=== PATIENT | female | born 1970 | race Caucasian/White ===

== ENCOUNTER 2017-10-25 17:28 | Emergency (ER) | payer OTHER ==
[2017-10-25 18:27] LABS: ADD MAN DIFF? NO
[2017-10-25 18:32] LABS: BASO % 1 % (0-3); EOS % 1 % (0-3); HEMATOCRIT 41.8 % (36.0-47.0); HEMOGLOBIN 14.2 g/dL (12.0-15.5); LYMPH # 1.2 x10^3/uL (1.0-4.8); LYMPH % 27 % (24-48); MEAN CORPUSCULAR HEMOGLOBIN 28 pg (25-35); MEAN CORPUSCULAR HGB CONC 34 g/dL (31-37); MEAN CORPUSCULAR VOLUME 82 fL (79-100); MONO # 0.6 x10^3/uL (0.0-1.1); MONO % 14 % (0-9); NEUT # 2.5 x10^3uL (1.8-7.7); NEUT % 57 % (31-73); PLATELET COUNT 274 x10^3/uL (140-400); RED CELL DISTRIBUTION WIDTH 14.4 % (11.5-14.5); WHITE BLOOD COUNT 4.4 x10^3/uL (4.0-11.0)
[2017-10-25] MEDS: DICYCLOMINE HCL 10 MG CAPSULE PO (18:37)
[2017-10-25] MEDS: IV NORMAL SALINE 1000ML BAG 1,000 ML IV (18:37)
[2017-10-25] MEDS: ONDANSETRON PF 4 MG/2 ML VIAL. IV (18:37)
[2017-10-25 18:44] LABS: ANION GAP 12 (6-14); BLOOD UREA NITROGEN 11 mg/dL (7-20); BUN/CREATININE RATIO 12 (6-20); CALCIUM 9.1 mg/dL (8.5-10.1); CARBON DIOXIDE 25 mmol/L (21-32); CHLORIDE 102 mmol/L (98-107); CREATININE 0.9 mg/dL (0.6-1.0); GFR 66.5; GLUCOSE 105 mg/dL (70-99); POTASSIUM 3.2 mmol/L (3.5-5.1); SODIUM 139 mmol/L (136-145)
[2017-10-25 18:50] LABS: ALBUMIN 3.4 g/dL (3.4-5.0); ALBUMIN/GLOBULIN RATIO 0.8 (1.0-1.7); ALK PHOS 70 U/L (46-116); ALT (SGPT) 20 U/L (14-59); AST (SGOT) 25 U/L (15-37); LIPASE 90 U/L (73-393); TOTAL BILIRUBIN 0.3 mg/dL (0.2-1.0); TOTAL PROTEIN 7.9 g/dL (6.4-8.2)
[2017-10-25 19:43] LABS: BILIRUBIN,URINE SMALL (NEG); CLARITY,URINE CLEAR; COLOR,URINE AMBER; GLUCOSE,URINE NEGATIVE (NEG); NITRITE,URINE NEGATIVE (NEG); PH,URINE 5.5; PROTEIN,URINE NEGATIVE (NEG-TRACE); UROBILINOGEN,URINE 0.2 mg/dL (0.2 mg/dL)
[2017-10-25 19:50] LABS: BACTERIA,URINE MANY /HPF (0-FEW); SQUAMOUS EPITHELIAL CELL,UR MANY /LPF
== END 2017-10-25 20:35 | disposition home or self-care (01) ==
LOC: ER 17:28
DX: N39.0 Urinary tract infection, site not specified (principal); R19.7 Diarrhea, unspecified; E11.9 Type 2 diabetes mellitus without complications
CPT/HCPCS: 36415; 80053; 81001; 83690; 85025; 87086; 96360; 99284-25; J7030

== ENCOUNTER → 2021-01-09 | Outpatient (CLI) | payer BC, OTHER ==
[2017-10-25 19:56] VITALS: BP 118/71
[~2021-01-09] MED LIST: NITR100C62 PO; ONDA4TAB12 PO
--- NOTE | 2021-01-09 15:27 | KCIC ---
EXAM: CT coronary artery calcium screening; radiologist over read. HISTORY: Mixed hyperlipidemia. Coronary artery calcium screening. TECHNIQUE: Computed tomographic images of the chest were obtained without contrast. Multiplanar refor matting was performed. *One or more of the following individualized dose reduction techniques were utilized for this examina tion: 1. Automated exposure control. 2. Adjustment of the mA and/or kV according to patient size. 3. Use of iterative reconstruction technique. COMPARISON: None. FINDINGS: The heart is normal in size. The aorta is normal in caliber. There is calcified atheroscler otic plaque involving the coronary arteries. There is no lymphadenopathy. There is no infiltrate, ple ural effusion or pneumothorax. There is no acute finding involving the upper abdomen or osseous struc tures. Coronary artery calcium score: Left main artery - 0 Left anterior descending - 34.8 Left circumflex - 0 Right coronary artery - 0 Posterior descending artery - 0 TOTAL = 34.8 IMPRESSION: 1. Calcified sclerotic plaque involving the coronary arteries. Coronary artery calcium score of 34.8. 2. No incidental thoracic finding. Electronically signed by: Francisca Moncada MD (01/09/2021 3:25 PM) [id number]
== END ==
LOC: KCIC CT 14:53
PROVIDERS: ATTEND Family Medicine
DX: I25.10 Atherosclerotic heart disease of native coronary artery without angina pectoris (principal); E78.5 Hyperlipidemia, unspecified
CPT/HCPCS: 75571